=== PATIENT | female | born 1985 | race African-American/Black ===

== ENCOUNTER 2017-12-13 04:29 | Emergency (ER) | payer OTHER ==
[~2017-12-13] VITALS: Ht 170.2 cm; Wt 104.3 kg
[2017-12-13 05:31] LABS: Basophils # (auto) 0 uL; Basophils % (auto) 0.4 % (0.0-2.0); Eosinophils # (auto) 0.1 uL; Eosinophils % (auto) 1.2 % (0.0-7.0); Hematocrit 31.6 % (36.0-46.0); Hemoglobin 10.2 g/dL (12.2-16.2); Lymphocytes # (auto) 1.2 uL; Lymphocytes % (auto) 10.8 % (10.0-50.0); Mean Corpuscular Hemoglobin 30.1 pg (28.0-32.0); Mean Corpuscular Hgb Conc. 32.4 g/dL (32.0-36.0); Monocytes # (auto) 0.5 uL; Monocytes % (auto) 4.4 % (0.0-12.0); Neutrophils # (auto) 9.5 uL; Neutrophils % (auto) 83.2 % (37.0-80.0); Platelet Count (auto) 300 10^3/uL (140-450); Red Cell Distribution Width 14.2 % (11.8-14.3); White Blood Cell 11.4 10^3/uL (4.4-10.8)
[2017-12-13 05:46] LABS: INR 0.9 (0.9-1.15); Partial Thromboplastin Time 26.1 sec (23.78-33.04); Prothrombin Time 9.7 sec (9.27-12.13)
[2017-12-13 05:54] LABS: Alanine Aminotransferase 123 U/L (13-56); Albumin 2.7 g/dL (3.4-5.0); Alkaline Phosphatase 184 U/L (45-117); Anion Gap 9 (5-15); Aspartate Aminotransferase 53 U/L (15-37); BUN/Creatinine Ratio 19.7; Bilirubin, Total 0.4 mg/dL (0.2-1.0); Blood Urea Nitrogen 13 mg/dL (7-18); Calcium 8.5 mg/dL (8.5-10.1); Carbon Dioxide 21 mmol/L (21-32); Chloride 109 mmol/L (98-107); GFR African American 135 mL/min; GFR Non-African American 112 mL/min; Glucose 152 mg/dL (74-106); Magnesium 2.3 mg/dL (1.6-2.6); Potassium 3.8 mmol/L (3.5-5.1); Sodium 139 mmol/L (136-145); Total Protein 7.4 g/dL (6.4-8.2)
[2017-12-13] MEDS ORDERED: fentaNYL CITRATE 100 MCG/2 ML VL IV ONE (06:30)
[2017-12-13] MEDS ORDERED: SODIUM CHLORIDE 0.9% 1,000 ML IV ONE (06:30)
[2017-12-13] MEDS ORDERED: ONDANSETRON HCL 4 MG/2 ML VIAL IV ONE ×3 (06:30→09:30)
[2017-12-13 06:50] VITALS: BP 136/83
[2017-12-13] MEDS ORDERED: HYDROmorphone HCL 2 MG/ML VL IV ONE (07:00)
[2017-12-13] MEDS ORDERED: IOHEXOL 350 MG/ML 100ML IJ ONE (07:00)
[2017-12-13] MEDS ORDERED: LEVOFLOXACIN 500MG 100 ML IV ONE (09:00)
[2017-12-13] MEDS ORDERED: cefTRIAXone 1GM/10ml IVPUSH 10 ML IV ONE (09:00)
== END 2017-12-13 11:19 | disposition home or self-care (01) ==
LOC: EDBD 04:29 → ER 04:35
DX: J18.9 Pneumonia, unspecified organism (principal); I10 Essential (primary) hypertension
CPT/HCPCS: 36415; 71275; 80053; 83605; 83735; 83880; 84484; 84702; 85025; 85610; 85730; 87040; 93005; 96365; 96375; 96376; 99285; J1170; J1956; J2405; J3010; Q9967